=== PATIENT | female | born 1955 | race Caucasian/White ===

== ENCOUNTER → 2018-12-12 15:37 | Outpatient (CLI) | payer OTHER, SELFPAY ==
--- NOTE | 2018-12-12 | DI.RAD.S_ITS ---
PROCEDURE: XR CHEST 2V INDICATIONS: Dyspnea TECHNIQUE: 2 views of the chest were acquired. COMPARISON: [facility], , CHEST 2 VIEW, 01/27/2017, 15:30. FINDINGS: Surgical changes and devices: None. Lungs and pleura: Lungs are clear. No pleural effusions or pneumothorax. Mediastinum: Mediastinal contours are normal. Heart size is normal. Bones and chest wall: No suspicious bony abnormalities. Soft tissues appear unremarkable. IMPRESSION: No acute disease Dictated by: Reji Grissom M.D. on 12/12/2018 at 16:38 Approved by: Reji Grissom M.D. on 12/12/2018 at 16:39
[2018-12-12 16:36] LABS: Add Manual Diff / Slide Review NO; Basophils Absolute Auto 100 /uL (0-100); Basophils Percent Auto 1.3 % (0-2); Eosinophils Absolute Auto 200 /uL (0-450); Eosinophils Percent Auto 2.7 % (2-4); Hematocrit 41.3 % (36-46); Hemoglobin 13.8 g/dL (12.0-16.0); Lymphocytes Absolute Auto 1700 /uL (1100-4500); Lymphocytes Percent Auto 31.6 % (25-40); Mean Corpuscular HGB Conc 33.3 % (30-36); Mean Corpuscular Hemoglobin 30.5 PG (26-34); Mean Corpuscular Volume 91.6 fL (80-100); Monocytes Absolute Auto 500 /uL (0-900); Monocytes Percent Auto 8.3 % (3-14); Neutrophils Absolute Auto 3100 /uL (1500-7000); Neutrophils Percent Auto 56.1 % (50-75); Platelet Count 222 X10^3/uL (150-400); Red Blood Cell Count 4.52 X10^6/uL (4.0-5.2); Red Cell Distribution Width 13.7 % (11.6-14.8); White Blood Cell Count 5.5 X10^3/uL (4.5-11.0)
[2018-12-12 16:56] LABS: B Type Natriuretic Peptide < 100 (<100)
[2018-12-12 16:58] LABS: Erythrocyte Sedimentation Rate 2 MM/HR (0-20)
[2018-12-12 17:16] LABS: Alanine Aminotransferase 23 IU/L (9-52); Albumin 4.7 g/dL (3.5-5.0); Albumin Globulin Ratio 1.9 (1.0-2.8); Alkaline Phosphatase 55 U/L (38-126); Aspartate Aminotransferase 30 IU/L (14-36); BUN Creatinine Ratio 28.3 (6-22); Bilirubin Total 0.4 mg/dL (0.2-1.3); Blood Urea Nitrogen 17 mg/dL (7-17); Calcium 10.2 mg/dL (8.4-10.2); Carbon Dioxide 26 mmol/L (22-32); Chloride 100 mmol/L (98-107); Estimated Glomerular Filt Rate > 60.0 mL/min (>60); Globulin 2.5 g/dL (1.7-4.1); Glucose 96 mg/dL (80-110); HEMOLYSIS < 15 (0-50); Potassium 4.4 mmol/L (3.4-5.1); Sodium 138 mmol/L (137-145); Total Protein 7.2 g/dL (6.3-8.2)
[2018-12-12 17:18] LABS: C-Reactive Protein Quant < 0.5 mg/dL (<1.0)
== END ==
PROVIDERS: PCP Internal Medicine; Visit Provider Internal Medicine
DX: R06.00 Dyspnea, unspecified (principal); R01.1 Cardiac murmur, unspecified
CPT/HCPCS: 36415; 71046; 80053; 83880; 85025; 85651; 86140; 87040

== ENCOUNTER 2024-08-14 16:58 | Emergency (ER) | payer MEDICARE, SELFPAY ==
[2024-08-14] VITALS (13 sets, daily range): BP systolic 191–254; BP diastolic 92–133; PULSE 59–81; RESP 12–30; TEMP 37.3; O2SAT 91–98; BMI 22.4
--- NOTE | 2024-08-14 17:29 | DI.CT.S_ITS ---
PROCEDURE: CT ANGIO HEAD AND NECK INDICATIONS: R arm/leg numb better, hx aneurysm clips. HTN 240s TECHNIQUE: After the administration of intravenous contrast, 1 mm thick sections acquired from the aortic arch through the [place] of [place]. 3-dimensional okazjlf-wtocruzsi-xkswtjtafj (MIP) and/or volume rendering reformats were acquired of the central intracranial vasculature and neck separately. For radiation dose reduction, the following was used: automated exposure control, adjustment of mA and/or kV according to patient size. COMPARISON: [facility], CT, CT ANGIO HEAD AND NECK, 07/20/2024, 13:16. [facility], CT, CT HEAD/BRAIN WO CON, 08/14/2024, 17:43. FINDINGS: Image quality: Diagnostic. BRAIN: Please see the separately dictated report from the noncontrast CT of the head performed at the same time. No abnormal intracranial arterial-phase enhancement. HEAD CT ANGIOGRAPHY: Anterior circulation: Intracranial internal carotid arteries demonstrate atherosclerotic calcifications resulting in suspected less than 50% stenosis, although mild streak artifact is present related to adjacent aneurysm clips. Bilateral aneurysm clips are seen at the left carotid bifurcation and adjacent to the right MCA more laterally. No residual or recurrent arterial aneurysm is seen. The flow within the paired anterior cerebral arteries is normal and symmetric. The flow within the middle cerebral arteries is normal and symmetric. The anterior communicating artery is seen. No aneurysms are seen. Posterior circulation: Mild atherosclerotic calcifications involving the intracranial left vertebral artery without hemodynamically significant stenosis. Right vertebral artery is patent. They join to form a normal appearing basilar artery. Flow within the posterior cerebral arteries is normal and symmetric. No aneurysms are seen. NECK CT ANGIOGRAPHY: Carotid system: The great vessels demonstrate a conventional anatomy as they arise from the aortic arch. The origins of the common carotid arteries appear patent. The common carotid arteries demonstrate normal caliber and courses. The bifurcation regions are both widely patent. The internal carotid arteries demonstrate normal calibers and courses. Posterior circulation: The origins of the vertebral arteries both appear widely patent. The more superior extracranial portions of both vertebral arteries also demonstrate normal courses and calibers. They join to form a normal appearing basilar artery. Soft tissues: Visualized neck soft tissues demonstrate no suspicious abnormalities. Bones: No suspicious bony lesions. Multilevel degenerative changes in the included spine. IMPRESSION: 1. Atherosclerotic calcifications again seen involving the intracranial portions of the bilateral internal carotid arteries and the intracranial left vertebral artery resulting in less than 50% stenosis. No high-grade stenosis identified. 2. Bilateral aneurysm clips. No recurrent intracranial aneurysm is seen. 3. No significant abnormality is seen within the arteries of the neck. Any quantitative measurements of stenosis were performed using NASCET criteria. Approved by: Félix Aden M.D. on 08/14/2024 at 19:07
--- NOTE | 2024-08-14 17:29 | DI.CT.S_ITS ---
PROCEDURE: CT HEAD/BRAIN WO CON INDICATIONS: R arm/leg numb better, hx aneurysm clips. HTN 240s TECHNIQUE: Noncontrast 4.5 mm thick angled axial sections acquired from the foramen magnum to the vertex, with coronal and sagittal reformats. For radiation dose reduction, the following was used: automated exposure control, adjustment of mA and/or kV according to patient size. COMPARISON: None. FINDINGS: Image quality: Diagnostic. CSF spaces: Basal cisterns are patent. No extra-axial fluid collections. The ventricles are symmetric in size and shape. Brain: Bilateral aneurysm clips. No acute intracranial hemorrhage or mass effect. Suspected chronic lacunar infarct in the left caudate nucleus. There is cerebral volume loss, with resultant ventricular and sulcal prominence. There are periventricular and deep white matter chronic small vessel ischemic changes. There is intracranial internal carotid artery atherosclerosis. Skull and face: Calvarium and visualized facial bones appear intact, without suspicious lesions. Sinuses: Visualized sinuses and mastoids are clear. IMPRESSION: No acute intracranial pathology. Approved by: Félix Aden M.D. on 08/14/2024 at 18:11
--- NOTE | 2024-08-14 17:32 | EKG_ITS ---
[place] [address] [place] [id number] Test Date: 2024-08-14 Pat Name: Emperatriz Cheng Department: Room: Gender: Female [employer] Manager: PRAVEENA : 1955 Requested By: Order Number: [id number] Reading MD: Carter Giang MD Measurements Intervals Adel Rate: 66 P: 47 HI: 156 QRS: 44 QRSD: 100 T: 48 QT: 412 QTc: 431 Interpretive Statements Normal sinus rhythm Nonspecific ST abnormality Electronically Signed On 08-15-2024 6:57:42 PDT by Carter Giang MD
--- NOTE | 2024-08-14 17:40 | PC.NURSE ---
BP 249/133, Dr Hunter notified. New orders received.
[2024-08-14 17:44] LABS: Add Manual Diff / Slide Review NO; Basophils Absolute Auto 100 /uL (0-100); Basophils Percent Auto 1.1 % (0-2); Eosinophils Absolute Auto 100 /uL (0-450); Eosinophils Percent Auto 0.8 % (2-4); Hematocrit 43.9 % (36-46); Hemoglobin 14.6 g/dL (12.0-16.0); Lymphocytes Absolute Auto 2100 /uL (1100-4500); Lymphocytes Percent Auto 32.9 % (25-40); Mean Corpuscular HGB Conc 33.3 % (30-36); Mean Corpuscular Hemoglobin 30.5 PG (26-34); Mean Corpuscular Volume 91.8 fL (80-100); Monocytes Absolute Auto 600 /uL (0-900); Monocytes Percent Auto 9.4 % (3-14); Neutrophils Absolute Auto 3600 /uL (1500-7000); Neutrophils Percent Auto 55.8 % (50-75); Platelet Count 201 X10^3/uL (150-400); Red Blood Cell Count 4.78 X10^6/uL (4.0-5.2); Red Cell Distribution Width 14.1 % (11.6-14.8); White Blood Cell Count 6.5 X10^3/uL (4.5-11.0)
[2024-08-14 17:47] LABS: INR 0.9 (0.9-1.3); Prothrombin Time 10.3 SECONDS (9.4-12.5)
[2024-08-14 17:50] LABS: PTT Partial Thromboplastin Tim 34 SECONDS (25.1-36.5)
[2024-08-14 18:01] LABS: Alanine Aminotransferase 24 IU/L (<35); Albumin 5.2 g/dL (3.5-5.0); Albumin Globulin Ratio 1.9 (1.0-2.8); Alkaline Phosphatase 34 U/L (38-126); Aspartate Aminotransferase 50 IU/L (14-36); BUN Creatinine Ratio 21.7 (6-22); Bilirubin Total 0.9 mg/dL (0.2-1.3); Blood Urea Nitrogen 13 mg/dL (7-17); Calcium 9.6 mg/dL (8.4-10.2); Carbon Dioxide 25 mmol/L (22-32); Chloride 104 mmol/L (98-107); Creatine Kinase 94 U/L (30-135); Estimated Glomerular Filt Rate > 60 mL/min (>60); Ethanol (ETOH) < 10 mg/dL; Globulin 2.8 g/dL (1.7-4.1); Glucose 96 mg/dL (70-99); Sodium 136 mmol/L (137-145)
[2024-08-14 18:03] LABS: HEMOLYSIS 155 (0-50)
[2024-08-14 18:04] LABS: Potassium 5.1 mmol/L (3.4-5.1)
[2024-08-14 18:07] LABS: Appearance Urine UA CLEAR; Bilirubin Urine UA NEGATIVE (NEGATIVE); Color Urine UA YELLOW; Glucose Urine UA NEGATIVE (Negative); Ketones Urine UA NEGATIVE (NEGATIVE); Leukocyte Esterase Urine UA 1+ (NEGATIVE); Nitrite Urine UA NEGATIVE (Negative); Occult Blood Urine UA TRACE-INTACT (Negative); Protein Urine UA NEGATIVE (Negative); Specific Gravity Urine UA <=1.005 (1.000-1.035); Urobilinogen Urine UA 0.2 E.U./dL (0.2)
[2024-08-14 18:12] LABS: Troponin I 0.019 ng/mL (0.01-0.034)
[2024-08-14 18:13] LABS: pH Urine UA 5.5 (4.5-8.0)
--- NOTE | 2024-08-14 18:20 | ED.NEUROSD ---
HPI - Neuro Symptoms/Deficit General Chief Complaint: Neuro Symptoms/Deficit Stated Complaint: possible mini stroke, sent by MD Time Seen by Provider: 08/14/24 17:29 Source: patient Mode of arrival: Ambulatory History of Present Illness HPI Narrative: 69-year-old female past medical history of CVA states that earlier this morning at around 7:00 a.m. she felt like her right side was going numb/tingling. States that this lasted for no more than a few hours, states that she called her primary care doctor and was instructed come into the ED for further evaluation treatment. She does state that she has a history of brain aneurysms with 2 clips. She is completely asymptomatic at this time. She has NIH of 0 she has no other symptoms such as headache visual disturbances chest pain shortness breath fever chills nausea vomiting abdominal pain or any other GI/ symptoms time. On Anticoagulants: No Related Data Home Medications Medication Instructions Recorded Confirmed cetirizine 10 mg tablet 10 mg PO QDAY ##0 08/03/17 Previous Rx's Medication Instructions Recorded amlodipine 2.5 mg tablet (Norvasc) 2.5 mg PO HS #14 tabs 08/03/17 Allergies Allergy/AdvReac Type Severity Reaction Status Date / Time Sulfa (Sulfonamide Allergy Unknown Verified 08/14/24 17:07 Antibiotics) [SULFA (SULFONAMIDE ANTIBIOTICS)] Review of Systems Review of Systems Narrative: General: Denies fever, chills, weight loss HEENT: Denies headache, eye drainage, eye irritation, head trauma, sore throat, voice change Cardiovascular: Denies any chest pain, palpitations, tachycardia Respiratory: Denies any shortness of breath, cough, wheeze, stridor GI/: Denies any abdominal pain, nausea, vomiting, diarrhea, bright red blood per rectum, melanotic stools, urinary frequency, urinary retention, dysuria, hematuria MSK: Denies any joint pain, muscle pains, swelling Skin: Denies any rashes, lesions, discoloration Neuro: Positive right-sided weakness, Denies any headache, lightheadedness, dizziness, fainting, weakness Psych: Denies SI/HI Hematologic/Lymphatic On Anticoagulants: No Patient History Social History Smoking Status: Never smoker Smoking Status: Never smoker Exam Narrative Exam Narrative: General: Cooperative, well-developed, not in acute distress HEENT: Normocephalic, atraumatic, PERRLA, normal sclera, eyelids normal Neck: Active full range of motion, atraumatic Chest: Normal to inspection, negative crepitus, no overlying erythema ecchymosis Respiratory: Normal respiratory effort, not in acute respiratory distress, clear to auscultation bilaterally negative cough, wheeze, tachypnea, rhonchi, rales Cardiology: Regular rate rhythm negative gallop, murmur, rubs GI/: No tenderness to palpation, soft, non rigid, normal to inspection, exam deferred MSK: Full active range of motion in all 4 extremities, atraumatic, no tenderness to palpation of any bony prominences Skin: No rashes or lesions noted Neuro: NIH of 0, no focal deficits Alert awake oriented x3, moves all 4 extremities spontaneously, cranial nerves intact, able to answer all questions appropriately follows commands appropriately Psych: Cooperative, negative suicidal or homicidal ideations Initial Vital Signs Initial Vital Signs: Vital Signs Temperature 99.2 F 08/14/24 17:07 Pulse Rate 70 08/14/24 17:07 Respiratory Rate 16 08/14/24 17:07 Blood Pressure 240/107 H 08/14/24 17:07 Pulse Oximetry 98 08/14/24 17:07 Oxygen Delivery Method Room Air 08/14/24 17:07 Course Orders Ordered: ED Orders 08/14/24 17:15 Urinalysis and Microscopic Stat Urine Culture Stat Urine Drug Screen, Rapid Stat 08/14/24 17:25 Complete Blood Count AUTO DIFF Stat Comprehensive Metabolic Panel Stat Ethanol (ETOH) Stat PTT Partial Thromboplastin Gregorio Stat Prothrombin Time INR Stat Troponin & CK Cardiac Panel Stat 08/14/24 17:29 CT angio head and neck Stat CT head/brain wo con Stat EKG-12 Lead Stat Discontinued Medications Amlodipine Besylate (Amlodipine 5 Mg Tablet) 5 mg PO NOW ONE Stop: 08/14/24 18:27 Last Admin: 08/14/24 18:31 Dose: 5 mg Documented By: STANISLAW Labetalol HCl (Labetalol 20 Mg/4 Ml Syringe) 10 mg IV NOW ONE Stop: 08/14/24 19:09 Last Admin: 08/14/24 19:20 Dose: 10 mg Documented By: Vital Signs Vital signs: Vital Signs - 8 hr 08/14/24 17:07 08/14/24 17:25 08/14/24 17:26 Temperature 99.2 F Pulse Rate 70 81 Respiratory Rate 16 Blood Pressure 240/107 H Pulse Oximetry 98 91 95 Oxygen Delivery Method Room Air 08/14/24 17:26 08/14/24 17:30 08/14/24 17:30 Temperature Pulse Rate 76 Respiratory Rate Blood Pressure 254/132 H 249/133 H Pulse Oximetry 97 Oxygen Delivery Method 08/14/24 17:53 08/14/24 17:53 08/14/24 18:00 Temperature Pulse Rate 76 64 Respiratory Rate 21 Blood Pressure 223/122 H Pulse Oximetry 97 97 Oxygen Delivery Method 08/14/24 18:00 08/14/24 18:04 08/14/24 18:04 Temperature Pulse Rate 66 Respiratory Rate 22 Blood Pressure 206/107 H 218/101 H Pulse Oximetry 98 Oxygen Delivery Method 08/14/24 18:06 08/14/24 18:06 08/14/24 18:30 Temperature Pulse Rate 64 Respiratory Rate 22 Blood Pressure 224/108 H 210/111 H Pulse Oximetry 97 Oxygen Delivery Method 08/14/24 18:30 08/14/24 19:00 08/14/24 19:02 Temperature Pulse Rate 64 71 63 Respiratory Rate 30 H 12 Blood Pressure Pulse Oximetry 97 97 96 Oxygen Delivery Method 08/14/24 19:02 08/14/24 19:20 08/14/24 19:30 Temperature Pulse Rate 65 Respiratory Rate Blood Pressure 221/109 H 221/109 H 191/92 H Pulse Oximetry Oxygen Delivery Method 08/14/24 19:30 Temperature Pulse Rate 59 L Respiratory Rate 16 Blood Pressure Pulse Oximetry 94 Oxygen Delivery Method Room Air MDM - Neuro Symptoms/Deficit Differential Diagnosis Differential diagnosis: Likely subarachnoid hemorrhage, cerebrovascular accident, transient cerebral ischemia and other (Hypertension,) Lab Data 08/14/24 17:25 08/14/24 17:25 Labs: Lab Results 08/14/24 08/14/24 08/14/24 Range/Units 17:15 17:15 17:25 WBC 6.5 (4.5-11.0) X10^3/uL RBC 4.78 (4.0-5.2) X10^6/uL Hgb 14.6 (12.0-16.0) g/dL Hct 43.9 (36-46) % MCV 91.8 (80-100) fL MCH 30.5 (26-34) PG MCHC 33.3 (30-36) % RDW 14.1 (11.6-14.8) % Plt Count 201 (150-400) X10^3/uL Neut % (Auto) 55.8 (50-75) % Lymph % (Auto) 32.9 (25-40) % Stanley % (Auto) 9.4 (3-14) % Eos % (Auto) 0.8 L (2-4) % Baso % (Auto) 1.1 (0-2) % Neut # (Auto) 3600 (9364-1889) /uL Lymph # (Auto) 2100 (1055-5967) /uL Stanley # (Auto) 600 (0-900) /uL Eos # (Auto) 100 (0-450) /uL Baso # (Auto) 100 (0-100) /uL PT 10.3 (9.4-12.5) SECONDS INR 0.9 (0.9-1.3) APTT 34 (25.1-36.5) SECONDS Sodium 136 L (137-145) mmol/L Potassium 5.1 (3.4-5.1) mmol/L Chloride 104 (98-107) mmol/L Carbon Dioxide 25 (22-32) mmol/L BUN 13 (7-17) mg/dL Creatinine 0.60 (0.52-1.04) mg/dL Estimated GFR > 60 (>60) mL/min BUN/Creatinine Ratio 21.7 (6-22) Glucose 96 (70-99) mg/dL Calcium 9.6 (8.4-10.2) mg/dL Total Bilirubin 0.9 (0.2-1.3) mg/dL AST 50 H (14-36) IU/L ALT 24 (<35) IU/L Alkaline Phosphatase 34 L (38-126) U/L Total Creatine Kinase 94 (30-135) U/L Troponin I 0.019 (0.01-0.034) ng/mL Total Protein 8.0 (6.3-8.2) g/dL Albumin 5.2 H (3.5-5.0) g/dL Globulin 2.8 (1.7-4.1) g/dL Albumin/Globulin Ratio 1.9 (1.0-2.8) Urine Color Yellow Urine Appearance Clear Urine pH 5.5 Normal (4.5-8.0) Ur Specific [place] <=1.005 (1.000-1.035) Urine Protein Negative (Negative) Urine Glucose (UA) Negative (Negative) g/dL Urine Ketones Negative (NEGATIVE) Urine Occult Blood Trace-intact (Negative) Urine Nitrate Negative (Negative) Urine Bilirubin Negative (NEGATIVE) Urine Urobilinogen 0.2 (0.2) E.U./dL Ur Leukocyte Esterase 1+ H (NEGATIVE) Urine RBC 0-1/hpf (0-5/HPF) Urine WBC 1-5/hpf (0-5/HPF) Ur Squamous Epith Cells 0-1 /hpf (0-5/HPF) Urine Bacteria Occasional (0-1) (None) Ur Culture Indicated? Specimen cultured Vol Urine Centrifuged 10ml (spun) U Opiates 300ng/mL cut Negative (Negative) Ur Oxycodone Screen Negative (Negative) Urine Methadone Screen Negative (Negative) Ur Barbiturates Screen Negative (Negative) U Tricyclic Antidepress Negative (Negative) Ur Phencyclidine Scrn Negative (Negative) Ur Amphetamines Screen Negative (Negative) U Methamphetamines Scrn Negative (Negative) Ur MDMA Scrn (Ecstasy) Negative (Negative) U Benzodiazepines Scrn Negative (Negative) Urine Cocaine Screen Negative (Negative) U Marijuana (THC) Screen Negative (Negative) Urine Specific [place] Normal (Normal) Ethyl Alcohol < 10 ( - 10) mg/dL Ur Creatinine Normal (Normal) Imaging Data CT scan - head: Radiologist's Impression: [place] [address] CT Scan Report Signed Patient: Emperatriz Tran MR#: [id number] : 1955 Acct:[id number] Age/Sex: 69 / F Date of Service: 08/14/24 Loc: ED Accession Number: [id number] Procedure: CT head/brain wo con Ordering Provider: Bhumika Hunter D.O. PROCEDURE: CT HEAD/BRAIN WO CON INDICATIONS: R arm/leg numb better, hx aneurysm clips. HTN 240s TECHNIQUE: Noncontrast 4.5 mm thick angled axial sections acquired from the foramen magnum to the vertex, with coronal and sagittal reformats. For radiation dose reduction, the following was used: automated exposure control, adjustment of mA and/or kV according to patient size. COMPARISON: None. FINDINGS: Image quality: Diagnostic. CSF spaces: Basal cisterns are patent. No extra-axial fluid collections. The ventricles are symmetric in size and shape. Brain: Bilateral aneurysm clips. No acute intracranial hemorrhage or mass effect. Suspected chronic lacunar infarct in the left caudate nucleus. There is cerebral volume loss, with resultant ventricular and sulcal prominence. There are periventricular and deep white matter chronic small vessel ischemic changes. There is intracranial internal carotid artery atherosclerosis. Skull and face: Calvarium and visualized facial bones appear intact, without suspicious lesions. Sinuses: Visualized sinuses and mastoids are clear. IMPRESSION: No acute intracranial pathology. CTA - brain/neck: Radiologist's Impression: [address] [address] [address] Scan Report Signed Patient: Emperatriz Tran MR#: [id number] : 1955 Acct:[id number] Age/Sex: 69 / F Date of Service: 08/14/24 Loc: ED Accession Number: [id number] Procedure: CT angio head and neck Ordering Provider: Bhumika Hunter D.O. PROCEDURE: CT ANGIO HEAD AND NECK INDICATIONS: R arm/leg numb better, hx aneurysm clips. HTN 240s TECHNIQUE: After the administration of intravenous contrast, 1 mm thick sections acquired from the aortic arch through the [place] of [place]. 3-dimensional cnqoppm-pvmrxrbln-weqhkqiric (MIP) and/or volume rendering reformats were acquired of the central intracranial vasculature and neck separately. For radiation dose reduction, the following was used: automated exposure control, adjustment of mA and/or kV according to patient size. COMPARISON: [facility], CT, CT ANGIO HEAD AND NECK, 07/20/2024, 13:16. [facility], CT, CT HEAD/BRAIN WO CON, 08/14/2024, 17:43. FINDINGS: Image quality: Diagnostic. BRAIN: Please see the separately dictated report from the noncontrast CT of the head performed at the same time. No abnormal intracranial arterial-phase enhancement. HEAD CT ANGIOGRAPHY: Anterior circulation: Intracranial internal carotid arteries demonstrate atherosclerotic calcifications resulting in suspected less than 50% stenosis, although mild streak artifact is present related to adjacent aneurysm clips. Bilateral aneurysm clips are seen at the left carotid bifurcation and adjacent to the right MCA more laterally. No residual or recurrent arterial aneurysm is seen. The flow within the paired anterior cerebral arteries is normal and symmetric. The flow within the middle cerebral arteries is normal and symmetric. The anterior communicating artery is seen. No aneurysms are seen. Posterior circulation: Mild atherosclerotic calcifications involving the intracranial left vertebral artery without hemodynamically significant stenosis. Right vertebral artery is patent. They join to form a normal appearing basilar artery. Flow within the posterior cerebral arteries is normal and symmetric. No aneurysms are seen. NECK CT ANGIOGRAPHY: Carotid system: The great vessels demonstrate a conventional anatomy as they arise from the aortic arch. The origins of the common carotid arteries appear patent. The common carotid arteries demonstrate normal caliber and courses. The bifurcation regions are both widely patent. The internal carotid arteries demonstrate normal calibers and courses. Posterior circulation: The origins of the vertebral arteries both appear widely patent. The more superior extracranial portions of both vertebral arteries also demonstrate normal courses and calibers. They join to form a normal appearing basilar artery. Soft tissues: Visualized neck soft tissues demonstrate no suspicious abnormalities. Bones: No suspicious bony lesions. Multilevel degenerative changes in the included spine. IMPRESSION: 1. Atherosclerotic calcifications again seen involving the intracranial portions of the bilateral internal carotid arteries and the intracranial left vertebral artery resulting in less than 50% stenosis. No high-grade stenosis identified. 2. Bilateral aneurysm clips. No recurrent intracranial aneurysm is seen. 3. No significant abnormality is seen within the arteries of the neck. ECG Data Interpretation: EKG interpreted by ED physician sinuses 6 beats per minute QTC [address] changes no STEMI MDM Narrative Medical decision making narrative: 69-year-old female with a past medical history of hypertension, brain aneurysm status post 2 clips, CVA 1 month ago presenting from home for evaluation of right-sided weakness tingling, she states that earlier today at around 6 or 7 she tingling sensation to her right side of her hand states that it started to spread up to her arm and down to her legs, she denies any actual weakness, denies any headache or visual disturbances. She states it lasted for a proximally 1-1/2 hours to 2 hours with complete resolution, at time evaluation here patient with NIH of 0. However patient is hypertensive, she states that she is on metoprolol losartan, however she just recently had an increase in her blood pressure medications approximately 1 week ago by her primary care doctor. Patient with CT head, CTA head and neck without any acute findings, patient states that she was supposed to be started on aspirin Plavix statin by her primary care doctor but she states that she does not want to take all these ?medications she states that she really only wants to take as little medication as possible. She states that she is feeling completely fine and just wanted to make sure she did not have another aneurysm. Did give patient 5 mg amlodipine and 20 mg IV labetalol with improvement of her blood pressure. Patient's lab work unremarkable. Did offer patient admission here for possible MRI for possible TIA given her history as well as however she states that she would rather just go home. She states that she feels completely fine and just wanted to make sure that she did not have any issues with her aneurysms. Patient was given strict return precautions she verbalized understanding of this and agrees to being discharged home with outpatient follow up Discharge Plan Departure Patient Disposition: Home Clinical Impression: Hypertension Activity Restrictions/Additional Instructions: Please continue taking your medications as prescribed Please follow up with the primary care doctor Please read the discharge instructions sheet carefully and bring all papers to all doctor follow-up visits, as it may contain information that your doctor may want to see. Disease processes change and evolve, if your symptoms worsen or if you develop any new symptoms that are concerning to you please return for evaluation. Your evaluation today does not show any evidence of any life-threatening/serious illnesses requiring admission to the hospital or surgery. Please follow-up with your doctor for re-evaluation in approximately 1 day. Seek immediate medical attention for any worrisome symptoms. *If you do not have a primary care provider please contact the [facility] Resource line at [phone]. They will ask some questions about your medical history and help get you set up with a doctor in the community. Prescriptions: No Action cetirizine 10 MG tablet 10 mg PO QDAY Qty: 0 amlodipine [Norvasc] 2.5 MG tablet 2.5 mg PO HS Qty: 14 0RF Referrals: [place] Melissa MD [Primary Care Provider] - Stand Alone Forms: Patient Portal/API/Survey
[2024-08-14 18:24] LABS: Bacteria Urine Occasional (0-1); Culture Indicated Urine Specimen Cultured; RBC Urine 0-1/HPF (0-5/HPF); Squamous Epithelial Cell Urine 0-1 /HPF (0-5/HPF); Urine Volume 10mL (spun); WBC Urine 1-5/HPF (0-5/HPF)
[2024-08-14] MEDS: AMLODIPINE 5 MG TABLET PO (18:31)
[2024-08-14 19:04] LABS: UR Morphine/Opiate cutoff 300 Negative (Negative); Ur Creatinine Normal (Normal); Ur Specific Gravity Normal (Normal); Urine Amphetamines Negative (Negative); Urine Barbiturates Negative (Negative); Urine Benzodiazepines Negative (Negative); Urine Cocaine Negative (Negative); Urine MDMA Negative (Negative); Urine Methadone Negative (Negative); Urine Methamphetamines Negative (Negative); Urine Oxycodone Negative (Negative); Urine Phencyclidine Negative (Negative); Urine Tetrahydrocannabinol Negative (Negative); Urine Tricyclic Antidepressant Negative (Negative); Urine pH Normal (Normal)
[2024-08-14] MEDS: LABETALOL 20 MG/4 ML SYRINGE 10 MG IV (19:20)
== END 2024-08-14 20:03 | disposition home or self-care (01) ==
PROVIDERS: Emergency Medicine; Emergency Provider Student in an Organized Health Care Education/Training Program; PCP Internal Medicine
DX: I10 Essential (primary) hypertension (principal); R53.1 Weakness; R20.2 Paresthesia of skin
CPT/HCPCS: 36415; 70450; 70496; 70498; 80053; 80305; 80320; 81001; 82550; 84484; 85025; 85610; 85730; 87086; 93005; 96374; 99285; Q9967